=== PATIENT | male | born 1925 | race Caucasian/White ===

== ENCOUNTER 2016-09-21 21:41 | Emergency (ER) | payer MEDICARE ==
[~2016-09-21] VITALS: Ht 180.3 cm; Wt 81.6 kg
[~2016-09-21 21:41] MED LIST: AMIODARONE HYD200 MG PO; AMIODARONE200 MG PO; APLISOL5 TU/0.1 M ID; ASPIRIN ADULT L81 M1 PO; ASPIRIN81 M1 PO; ATIVAN1 MG PO; COLACE100 MG PO; COUMADIN4 M1 PO; COUMADIN5 M2 PO; CRESTOR10 MG PO; CRESTOR20 MG PO; DIGOX0.125 MG PO; DILTIAZEM120 MG PO; DIPROSONE 0.05%15 GM PO; DULCOLAX10 MG R; DUONEB 3 MG/3 ML3 M1 INH; FISH OIL 500MG500 MG PO; FISH OIL1000 MG PO; FLEET ADULT ENEM1 EA R; FLOMAX0.4 MG PO; HYDROCODONE BIT1 T11 PO; IMDUR ER30 MG PO; KCL PO; KLOR-CON M2020 ME1 PO; KLOR-CON M2020 MEQ PO; LANOXIN0.125 MG PO; LASIX20 MG PO; LASIX40 MG PO; LEVOTHYROXINE0.05 MG PO; LIPITOR20 MG PO; LISINOPRIL10 MG PO; LOPRESSOR100 MG PO; LOVENOX80 MG/0.8 SC; METOPROLOL25 MG PO; MOM30 ML PO; MULTIVITAMIN1 SGL PO; NOLVADEX20 MG PO; PERCOCET 325 MG1 TA5 PO; POTASSIUM CHLO10 ME2 PO; TAMOXIFEN CITRA20 MG PO; TAMSULOSIN HYD0.4 MG PO; TOPROL XL25 MG PO; TYLENOL325 M1 PO; VIBRAMYCIN100 MG PO; WARFARIN SOD5 MG PO; [UNRECOGNIZED DRUG - OTHER] IM
[2016-09-21 21:47] VITALS: BP 150/64
[2016-09-21 22:10] LABS: BASO % 0.4 % (0.0-1.0); EOS # 0.2 10*3/uL (0.0-0.4); EOS % 2.2 % (1.0-4.0); HEMATOCRIT 31.3 % (42.0-52.0); IG # 0.1 10*3/uL (0.0-0.1); LYMPH # 1.3 10*3/uL (1.3-4.4); LYMPH % 17.4 % (27.0-41.0); MEAN CELL VOLUME 92.6 fl (80.0-94.0); MEAN CORPUSCULAR HGB 29.6 pg (27.0-31.0); MEAN CORPUSCULAR HGB CONC 31.9 g/dl (33.0-37.0); MEAN PLATELET VOLUME 9.2 fl (9.6-12.3); MONO # 0.7 10*3/uL (0.1-1.0); MONO % 9.5 % (3.0-9.0); NEUT # 5.2 10*3/uL (2.3-7.9); PLATELET COUNT AUTOMATED 115 10*3/uL (130-400); RED BLOOD COUNT 3.38 10*6/uL (4.50-5.90); RED CELL DISTRI WIDTH 14.5 % (0-14.5); WHITE BLOOD COUNT 7.6 10*3/uL (4.8-10.8)
[2016-09-21 22:19] LABS: PROTHROMBIN TIME 10.7 SECONDS (9.0-12.4)
[2016-09-21 22:29] LABS: ALBUMIN 3.3 gm/dl (3.1-4.5); ALKALINE PHOSPHATASE 79 U/L (45-117); BILIRUBIN, TOTAL 0.5 mg/dl (0.2-1.0); BUN 38 mg/dl (7-24); CARBON DIOXIDE 25 mmol/L (21-32); CHLORIDE 106 mmol/L (98-107); EST GLOM FILT AFRICAN AMERICAN 28 ml/min; GLUCOSE 140 mg/dL (65-99); POTASSIUM 4.1 mmol/L (3.5-5.1); SGOT/AST 32 IU/L (3-35); SGPT/ALT 33 U/L (12-78); SODIUM 142 mmol/L (136-145); TOTAL PROTEIN 6.9 gm/dL (6.4-8.2)
[2016-09-21 22:30] LABS: TROPONIN I < 0.015 ng/ml (<0.045)
[2016-09-21 23:50] LABS: BILIRUBIN NEGATIVE (NEGATIVE); BLOOD NEGATIVE (NEGATIVE); CLARITY CLEAR (CLEAR); COLOR YELLOW (YELLOW); GLUCOSE NEGATIVE (NEGATIVE); KETONE NEGATIVE (NEGATIVE); LEUKO ESTERASE NEGATIVE (NEGATIVE); NITRITE NEGATIVE (NEGATIVE); PH 6.5 (5.0-9.0); PROTEIN NEGATIVE (NEGATIVE); UROBILINOGEN 0.2 E.U./dl (0.2-1.0)
[2016-09-21 23:51] VITALS: BP 153/62
[2016-09-22 00:05] LABS: URINE REFLEX COMMENT NO (NO); WBC 0-2 wbc/hpf (0-5)
== END 2016-09-22 00:21 | disposition short-term general hospital (02) ==
LOC: ED 21:41 → EDHOLD 22:51 → ED 09-22 00:21
PROVIDERS: Emergency Medicine
DX: S72.002A Fracture of unspecified part of neck of left femur, initial encounter for closed fracture (principal); Z88.1 Allergy status to other antibiotic agents; Z79.82 Long term (current) use of aspirin; Z79.899 Other long term (current) drug therapy; W18.39XA Other fall on same level, initial encounter; Y93.01 Activity, walking, marching and hiking; Y92.090 Kitchen in other non-institutional residence as the place of occurrence of the external cause; Y99.8 Other external cause status

== ENCOUNTER → 2017-01-03 | Day surgery (SDC) | payer MEDICARE ==
[~2017-01-03] VITALS: Wt 75.7 kg
--- NOTE | ~2017-01-03 | O ---
[place], [place] OPERATIVE NOTE [id number] UNIT #: [id number] ROOM: DOCTOR: GINI MOBLEY MD BIRTHDATE: [birth year] DOS: GASTROENDOSCOPIC REPORT INDICATIONS: The patient has presented with chief complaint of anemia, undergone investigation. The patient resides in a skilled nursing. PROCEDURE: Today's procedure part of investigation is panendoscopy. PREMEDICATION: Versed and Diprivan. SCOPE: Olympus forward-viewing gastroscope Q10 video. REPORT: After putting the patient in the left lateral position and after application of lubricant to the scope, the scope was introduced. Thereafter, under direct visualization, I advanced through the length of esophagus without difficulty. Hiatal hernia was identified. This was approximately 3 cm. Gastric pouch was then entered. Gastritis was seen. Duodenal bulb, second and third part within normal limit. No biopsies obtained. The patient was gradually extubated, tolerated procedure well. IMPRESSION: Mild gastritis. PLAN AND DISCUSSION: There is no source of upper gastrointestinal bleed in this patient or lower gastrointestinal bleed in this patient. Chronic anemia could be of other etiologies. The patient is, however, on aspirin. We are going to resume his aspirin intake again today and regular diet as tolerated. FOLLOWUP: With you in skilled nursing and in any further anemia workup. Thank you very much again. Sincerely yours, [place], [place] OPERATIVE NOTE [facility] [id number] UNIT #: [id number] ROOM: DOCTOR: GINI MOBLEY MD BIRTHDATE: [birth year] GINI MOBLEY MD CM:OPRECORD:OPERATIVE NOTE 1000 1142 GINI MOBLEY MD 01/03/17 1851 interface
--- NOTE | ~2017-01-03 | O ---
[place], [place] OPERATIVE NOTE [facility] [id number] UNIT #: [id number] ROOM: DOCTOR: GINI MOBLEY MD BIRTHDATE: [birth year] DOS: HISTORY OF PRESENT ILLNESS: An 89-year-old patient who has presented with chief complaint of anemia, drop in H and H. PAST MEDICAL HISTORY: Left hip, status post previous transfusion, hypertension, atrial fibrillation and pneumonic infiltrate. ALLERGIES: CEFTIN. FAMILY HISTORY: Noncontributory. SOCIAL HISTORY: Nonsmoker and social alcohol consumer, presently residing in a assisted, [facility]. PROCEDURE: Today's procedure part of investigation is panendoscopy and colonoscopy. PREMEDICATION: Versed and Diprivan. SCOPE: Olympus forwarding colonoscope 10L video. REPORT: After putting the patient in the left lateral position and after application of lubricant to the scope, the scope was introduced. Thereafter, under direct visualization, I advanced through the length of colon without difficulty. Base of the cecum explored, appendiceal orifice identified and ileocecal valve was defined. Pandiverticulosis of tjyv-gn-hyhelqyu degree was identified. No ulceration, no lesion was seen. Air was suctioned out. The patient was extubated, tolerated procedure well. IMPRESSION: Diverticulosis, no source of lower gastrointestinal bleed. PLAN: I am going to proceed with panendoscopy [place], [place] OPERATIVE NOTE NAME: CIRA SAINZN Stephane UNIT #: [id number] ROOM: DOCTOR: GINI MOBLEY MD BIRTHDATE: [birth year] GINI MOBLEY MD CM:OPRECORD:OPERATIVE NOTE 1000 1136 GINI MOBLEY MD 01/03/17 1137 interface
[2017-01-03 08:55] VITALS: BP 148/88
[2017-01-03 09:56] VITALS: BP 113/63
[2017-01-03 10:10] VITALS: BP 110/50
[2017-01-03 10:25] VITALS: BP 130/56
== END | disposition home or self-care (01) ==
LOC: SDC 12-29 08:45
DX: K29.70 Gastritis, unspecified, without bleeding (principal); K44.9 Diaphragmatic hernia without obstruction or gangrene; D64.9 Anemia, unspecified; K57.30 Diverticulosis of large intestine without perforation or abscess without bleeding; Z79.82 Long term (current) use of aspirin; I48.91 Unspecified atrial fibrillation; Z79.01 Long term (current) use of anticoagulants; I10 Essential (primary) hypertension; Z95.2 Presence of prosthetic heart valve; Z95.1 Presence of aortocoronary bypass graft; Z88.8 Allergy status to other drugs, medicaments and biological substances

== ENCOUNTER 2017-02-04 14:38 | Inpatient (IN) | payer MEDICARE ==
[2017-02-04] VITALS (9 sets, daily range): BP systolic 98–135; BP diastolic 54–79
[~2017-02-04] VITALS: Ht 177.8 cm; Wt 73.9 kg
--- NOTE | ~2017-02-04 | PR ---
[place], [place] PROGRESS NOTE NAME: ROLANDO SAINZ [facility] #: [id number] UNIT #: [id number] ROOM: [facility] DOCTOR: JAGDISH BRUNO MD BIRTHDATE: [birth year] DOS: 02/06/2017 SUBJECTIVE: The patient was seen today at his bedside in the Intensive Care Unit. No family members were in attendance. He seems more awake and alert today. Since I saw him last, he did convert from atrial flutter into sinus rhythm. His diltiazem drip was stopped yesterday. He is currently on a small dose of metoprolol and a fairly large dose of amiodarone orally with good control of his rhythms and his rate. The patient denies chest pain, nausea or dyspnea. PHYSICAL EXAMINATION: VITAL SIGNS: Pulse is 64 and regular, blood pressure is 127/61. He is afebrile. He weighs 73.9 kilograms with a body mass index of 23.4. HEENT: Normocephalic, atraumatic. NECK: Supple. He has no jugular distention. Carotids are full without bruits. LUNGS: Respirations are unlabored. His chest is clear anteriorly and laterally. HEART: Has a regular rhythm. He has a fourth heart sound, but no third heart sound. He has a grade 2/6 systolic murmur along the left sternal border, but no diastolic murmurs. ABDOMEN: Soft and normally active. EXTREMITIES: Showed no edema. LABORATORY DATA: Hemoglobin today is 9.2, white count 9100, platelet count 136,000. Sodium 141, potassium 3.7, BUN 14, creatinine 1.08. IMPRESSION: 1. Paroxysmal atrial fibrillation and flutter with rapid ventricular response. The patient converted to sinus rhythm yesterday when his amiodarone dose was increased. 2. 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 3. Remote history of bypass surgery. 4. History of breast cancer, on hormonal therapy. 5. Malnutrition. 6. Hypotension due to his tachycardia and left ventricular dysfunction along with diarrhea. PLAN: I did review the patient's echocardiogram yesterday. It showed that his left ventricular size was normal with mild concentric left ventricular hypertrophy, systolic function overall was normal. His diastolic filling pattern was consistent with stage 3 diastolic dysfunction. The left atrium was dilated. The aortic valve was not well visualized, but appeared to be functioning normally. The patient did have moderate mitral insufficiency. The hospitalist physicians did speak to family about the patient's anticoagulation. Anticoagulation was held after he fell and fractured his hip. There was a concern that he was too frail to maintain anticoagulation therapy. [place], [place] PROGRESS NOTE [facility] [id number] UNIT #: [id number] ROOM: [facility] DOCTOR: JAGDISH BRUNO MD BIRTHDATE: [birth year] He seems mostly bedridden at this time and therefore, anticoagulation may be better tolerated; however, I will defer this to his primary care service and his regular basketball coach. Since his rhythm is now controlled, I will decrease his amiodarone to 200 mg twice a day. We will continue low-dose beta fady. We will continue to follow him with his other physicians. No other invasive or aggressive cardiac evaluation is planned at this time. We thank the hospitalist physicians for asking our advice regarding his care. JAGDISH BRUNO MD CM:PNTRANS [id number] JAGDISH BRUNO MD 02/06/17 1344 interface
--- NOTE | ~2017-02-04 | CON ---
[place], [place] REPORT OF CONSULTATION NAME: ROLANDO SAINZ [facility] #: [id number] UNIT #: [id number] ROOM: 523 DOCTOR: JAGDISH BRUNO MD BIRTHDATE: [birth year] DOS: 02/05/2017 CARDIOLOGY CONSULTATION The patient was seen in the intensive care unit. REASON FOR CONSULTATION: Tachycardia and hypotension. HISTORY OF PRESENT ILLNESS: The patient is an 89-year-old man who does have a complicated cardiovascular history. Most of his care has occurred at the [facility] in [place], [place] and therefore detailed records are not available. Review of old records that are at [facility] show that the patient does have a history of coronary artery disease and had bypass surgery over 20 years ago. He also had a possible endocarditis and aortic stenosis. An aortic valve replacement was done in November 2013. It is not clear from the history; however, there is suggestion that this may have been a transaortic valve replacement (TAVR). The patient has been chronically ill. He does have a history of breast cancer. He also has a history of a hip fracture in September 2016. After the hip fracture, he reportedly has had persistent Clostridium difficile enterocolitis, resulting in persistent diarrhea. He is a [facility] a local [facility] where he was noted to be tachycardic and hypotensive on 02/04/2017. He was therefore moved to [facility] for further assessment. He was placed on a diltiazem drip and his heart rate has decreased from 150 range to about the 110 range. The patient is lying flat in bed. He currently denies any chest pain or palpitations. He is lethargic but arousable and able to answer questions. He does seem to be very hard of hearing and it is difficult to get a detailed interview with him. PAST MEDICAL HISTORY: Extensive and includes the followin. Atrial fibrillation, which has been present for several years along with atrial flutter. 2. Atherosclerotic heart disease, status post bypass surgery over 20 years ago. 3. Aortic stenosis, status post aortic valve replacement in November 2013. A tissue prosthesis was utilized and it is not clear if this was a surgical valve replacement or transaortic valve replacement. 4. History of breast cancer, status post mastectomy and hormonal therapy. 5. Hip fracture, September 2016. 6. 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 7. Hypothyroidism. 8. Status post knee replacement. 9. History of herniorrhaphy. 10. Status post cholecystectomy. REVIEW OF SYSTEMS: The patient denies diplopia. He does admit to feeling tired and weak. He denies dyspnea, orthopnea or PND. He denies any chest pain or palpitations. He denies nausea or vomiting. He has had persistent diarrhea. [place], [place] REPORT OF CONSULTATION NAME: ROLANDO SAINZ UNIT #: [id number] ROOM: 523 DOCTOR: JAGDISH BRUNO MD BIRTHDATE: [birth year] He denies blood in his stools. He denies blood in his urine. He denies any peripheral edema. He denies fevers or chills. His appetite has diminished. He denies cough or hemoptysis. Remainder of the review of systems is negative except as noted above. FAMILY HISTORY: The patient's mother of cancer at age 56. His father of cancer at age 84. MEDICATIONS PRIOR TO ADMISSION: Albuterol by inhaler as needed, acetaminophen p.r.n., amiodarone 200 mg p.o. daily, aspirin 325 mg b.i.d., cholestyramine 1 pack b.i.d., clonazepam 0.5 mg at bedtime p.r.n. agitation, iron sulfate 325 mg q. 8 hours, furosemide 20 mg on Mondays, Wednesdays and Fridays, potassium chloride 20 mEq on Mondays, Wednesdays and Fridays, levothyroxine 50 mcg daily, metoprolol tartrate 12.5 mg daily, Zofran q. 6 hours p.r.n., sertraline 50 mg at bedtime, tamoxifen 20 mg at bedtime, Tamsulosin 0.4 mg at bedtime and Kenalog cream b.i.d. to the left upper thigh. ALLERGIES: The patient lists allergies to CEFUROXIME. SOCIAL HISTORY: The [facility] is a [facility]. He does not consume excessive amounts of alcohol and does not smoke. PHYSICAL EXAMINATION: GENERAL: The patient is a slender, elderly white male who is awake and alert, but lethargic. VITAL SIGNS: Pulse is 110 and regular, blood pressure is 117/60. He is afebrile. He weighs 73.9 kg and has a body mass index of 23.4. HEENT: Normocephalic, atraumatic. Extraocular muscles are intact. Sclerae are clear. Pupils are equal, round and reactive to light. Oral mucosa is moist. Tongue is midline. NECK: Supple. He has no jugular distention. Carotids are full. He has no bruits. He had no neck or supraclavicular masses and no thyromegaly. LUNGS: Respirations are unlabored. His chest is clear anteriorly and laterally. He does have decreased breath sounds at the bases. CHEST: Does show a well-healed sternotomy incision. There do appear to be 2 parallel incision scars over his sternum which may indicate he has had 2 sternotomies in the past, 1 for his bypass and potentially a second one for his aortic valve replacement. As noted, it is not clear from the history whether his aortic valve replacement was a surgical valve replacement or TAVR. HEART: Has an irregular rhythm. He has a grade 2/6 systolic murmur along the left sternal border. No diastolic murmurs are present. There are no gallops. The PMI was not displaced. There is no precordial heave, lift or thrill. ABDOMEN: Soft and normally active without masses, organomegaly or bruits. EXTREMITIES: Showed no edema. Peripheral pulses are absent in the feet. LABORATORY DATA: I reviewed his electrocardiogram, which shows atrial flutter with 2:1 block. He has low voltage. No acute ST or T-wave changes are seen. Chest x-ray shows mild cardiomegaly, but no acute infiltrates. There may be some scarring at the left base. Hemoglobin is 10.0, hematocrit 33.4. There are 12,600 white cells. INR is 1.1. Sodium is 144, potassium 3.7, BUN 14, [place], [place] REPORT OF CONSULTATION NAME: ROLANDO SAINZ UNIT #: [id number] ROOM: 523 DOCTOR: JAGDISH BRUNO MD BIRTHDATE: [birth year] creatinine 1.21. Troponin is normal, although it is slightly measurable at 0.019. TSH is normal. IMPRESSIONS: 1. Atrial fibrillation and flutter with a rapid ventricular response. The patient apparently has had this in the past. Typically, his heart rate is controlled with low dose amiodarone and beta fady. It is unclear if recurrent Clostridium is resulting in his current hemodynamic instability. 2. History of aortic valve replacement utilizing tissue prosthesis, technique not known, approximately November 2013. 3. Remote history of bypass surgery. 4. History of breast cancer, on hormonal therapy. 5. Malnutrition. 6. Hypotension, probably due to a combination of his tachycardia, possible left ventricular dysfunction and diarrhea. 7. Other diagnoses as noted above. PLAN: We will change from metoprolol tartrate to metoprolol succinate in order to improve coverage. For now, I will increase his amiodarone dose to try to better improve his heart rate control. Old records and an old echo have been requested from the [facility] in [place]. The records available indicate that he is not being anticoagulated. He is on high dose aspirin (325 mg twice a day), but no warfarin or ____ oral anticoagulant. For now, we will continue his current medications, but request records from the [facility] in [place] to see if we can get a better idea as to why he is not being anticoagulated. Hopefully, as his diarrhea decreases and the level of amiodarone in the system increases, his heart rate will slow and consequently his blood pressure will increase. I thank the hospitalist physicians for asking our advice regarding his management. ADDENDUM: As I was creating this report, the patient's echocardiogram became available. Study was done 10/10/2016 at the [facility] in [place]. This was felt to be a technically difficult study. The left ventricular size was normal with an ejection fraction of about 60%. No regional wall motion abnormalities were seen. The left atrium was moderately enlarged. There was moderate mitral insufficiency. Bioprosthetic was present in the aortic position with a mean transvalvular gradient of 9 mmHg. The valve was felt to be functioning normally. There was hzylttgp-in-yvvzot tricuspid insufficiency with a right ventricular systolic pressure between 40 and 45 mmHg. No pericardial effusion was seen. We will repeat the patient's echocardiogram at this time to make sure he has not developed a problem with his bowel function or left ventricular function in the last 3 months that would cause his tachycardia and hypotension. [place], [place] REPORT OF CONSULTATION NAME: ROLANDO SAINZ UNIT #: [id number] ROOM: 523 DOCTOR: JAGDISH BRUNO MD BIRTHDATE: [birth year] JAGDISH BRUNO MD CM:CONSTR:REPORT OF CONSULTATION 0855 02/07/17 1558 interface
[~2017-02-04 14:38] MED LIST changes: +ASPIR-TRIN325 MG PO; -ASPIRIN81 M1 PO; -LASIX40 MG PO; -LEVOTHYROXINE0.05 MG PO; +LEVOTHYROXINE50 MCG PO
[2017-02-04 15:24] LABS: BASO % 0.3 % (0.0-1.0); EOS # 0.1 10*3/uL (0.0-0.4); EOS % 0.4 % (1.0-4.0); HEMATOCRIT 35.6 % (42.0-52.0); HEMOGLOBIN 10.9 g/dl (14.0-18.0); LYMPH # 1.2 10*3/uL (1.3-4.4); LYMPH % 7.6 % (27.0-41.0); MEAN CORPUSCULAR HGB 28.2 pg (27.0-31.0); MEAN CORPUSCULAR HGB CONC 30.6 g/dl (33.0-37.0); MEAN PLATELET VOLUME 9.7 fl (9.6-12.3); MONO # 1.5 10*3/uL (0.1-1.0); MONO % 9.2 % (3.0-9.0); NEUT % 82.1 % (47.0-73.0); PLATELET COUNT AUTOMATED 163 10*3/uL (130-400); RED BLOOD COUNT 3.87 10*6/uL (4.50-5.90); RED CELL DISTRI WIDTH 17.9 % (0-14.5); WHITE BLOOD COUNT 15.9 10*3/uL (4.8-10.8)
[2017-02-04 15:33] LABS: ACT PARTIAL THROMBO TIME 26.3 SECONDS (20.8-31.5); INTERNATIONAL NORM RATIO 1.1 (2.0-3.5)
[2017-02-04 15:41] LABS: CREATININE 1.45 mg/dL (0.70-1.30); MAGNESIUM 1.8 mg/dL (1.5-2.1); POTASSIUM 3.7 mmol/L (3.5-5.1); TROPONIN I 0.02 ng/ml (<0.045)
[2017-02-04 16:06] LABS: BILIRUBIN NEGATIVE (NEGATIVE); BLOOD NEGATIVE (NEGATIVE); CLARITY CLEAR (CLEAR); COLOR YELLOW (YELLOW); GLUCOSE NEGATIVE (NEGATIVE); KETONE NEGATIVE (NEGATIVE); LEUKO ESTERASE NEGATIVE (NEGATIVE); NITRITE NEGATIVE (NEGATIVE); SPECIFIC GRAVITY 1.025 (1.005-1.030); UROBILINOGEN 0.2 E.U./dl (0.2-1.0)
[2017-02-04 16:18] LABS: WBC 0-2 wbc/hpf (0-5)
[2017-02-04 16:19] LABS: BACTERIA TRACE; EPITHELIAL CELLS 0-2
--- NOTE | 2017-02-04 17:30 | NUR ---
A 89, admitted to ICCU, under the services of AL Alonso DO with a diagnosis of sepsis. Chief complaint is diarrhea. Patient arrived via stretcher from ER. Monitor applied. Initial assessment completed. Vital signs taken and recorded. AL ALONSO DO notified of admission to the unit. Orders received. See assessment for past medical history, medications and allergies. Patient and/or family oriented to unit. [facility] ICCU visitation policy reviewed. Clothing/patient valuable form completed. TIMOTHY VALDIVIA
[2017-02-04] MEDS ORDERED: KLONOPIN0.5 MG PO (18:02)
[2017-02-04] MEDS ORDERED: METOPROLOL25 MG PO (18:08)
[2017-02-04] MEDS ORDERED: ZOLOFT50 MG PO (18:09)
[2017-02-04] MEDS ORDERED: QUESTRAN POWDE378 GM PO (18:12)
[2017-02-04] MEDS ORDERED: KENALOG 0.1%80 GM T (18:13)
[2017-02-04] MEDS ORDERED: FERROUS SULFAT325 MG PO (18:14)
[2017-02-04] MEDS ORDERED: TYLENOL325 M2 PO (18:16)
[2017-02-04] MEDS ORDERED: ZOFRAN4 MG PO (18:17)
--- NOTE | 2017-02-04 18:54 | NUR ---
DR. HIGGINBOTHAM NOTIFIED OF CONSULT AND SELVINS RICH MORROW CONTINUED.
[2017-02-05] VITALS (10 sets, daily range): BP systolic 91–118; BP diastolic 49–64
--- NOTE | 2017-02-05 04:10 | NUR ---
PATIENT HAS NOT URINATED SINCE 1899 ON 02/04. CALLED DOCTOR BA WHO GAVE ORDERS FOR A MOYER CATH.
--- NOTE | 2017-02-05 04:27 | NUR ---
MOYER CATH 16F INSERTED PER DOCTORS ORDERS. PATIENT TOLERATED WELL. PATIENT DRAINING DARK CHERI URINE. PATIENT HAD APPROX 500 MLS OF URINE.
[2017-02-05 05:15] LABS: BASO % 0.3 % (0.0-1.0); EOS # 0.2 10*3/uL (0.0-0.4); EOS % 1.7 % (1.0-4.0); HEMATOCRIT 33.4 % (42.0-52.0); LYMPH # 0.8 10*3/uL (1.3-4.4); LYMPH % 6.3 % (27.0-41.0); MEAN CELL VOLUME 93.3 fl (80.0-94.0); MEAN CORPUSCULAR HGB 27.9 pg (27.0-31.0); MEAN CORPUSCULAR HGB CONC 29.9 g/dl (33.0-37.0); MEAN PLATELET VOLUME 9.6 fl (9.6-12.3); MONO # 1.3 10*3/uL (0.1-1.0); MONO % 10.2 % (3.0-9.0); NEUT # 10.3 10*3/uL (2.3-7.9); NEUT % 81.1 % (47.0-73.0); PLATELET COUNT AUTOMATED 132 10*3/uL (130-400); RED BLOOD COUNT 3.58 10*6/uL (4.50-5.90); WHITE BLOOD COUNT 12.6 10*3/uL (4.8-10.8)
[2017-02-05 05:31] LABS: ALBUMIN 2.2 gm/dl (3.1-4.5); ALKALINE PHOSPHATASE 67 U/L (45-117); BUN 14 mg/dl (7-24); CHLORIDE 109 mmol/L (98-107); CHOLESTEROL 103 mg/dL (<200); CREATININE 1.21 mg/dL (0.70-1.30); HDL CHOLESTEROL 40 mg/dl (40-60); LDL CHOLESTEROL 49 mg/dL (9-159); MAGNESIUM 1.7 mg/dL (1.5-2.1); PHOSPHOROUS 2.6 mg/dL (2.5-4.9); POTASSIUM 3.7 mmol/L (3.5-5.1); SGOT/AST 45 IU/L (3-35); SGPT/ALT 30 U/L (12-78); SODIUM 144 mmol/L (136-145); TOTAL PROTEIN 5.7 gm/dL (6.4-8.2); TRIGLYCERIDES 68 mg/dl (<150); VLDL CHOLESTEROL 14 mg/dL (6-40)
--- NOTE | 2017-02-05 07:05 | NUR ---
PT ASSISTED ONTO BEDPAN FOR GREEN MUSHY STOOL WITH STRONG ODOR. CARDIZEM DRIP CONTINUES AT 5 MG/HR FOR A-FIB RATES IN THE LOW 100-110'S. PATIENT IS HARD OF HEARING.
--- NOTE | 2017-02-05 07:34 | NUR ---
Shift chart check completed.
[2017-02-05] MEDS ORDERED: VENTOLIN 02.5 MG/3 M INH (07:44)
--- NOTE | 2017-02-05 08:00 | NUR ---
CONTROL CLERK FOOD AND BEVERAGE VS. PER CHART, PT COMES FROM [facility]. WILL CHECK FOR RETURN NEEDS.
[2017-02-05 08:04] LABS: VITAMIN D, 25-HYDROXY 21.9 ng/mL (30-100)
--- NOTE | 2017-02-05 08:16 | NUR ---
MED LIST IS NOW UPDATED AGAINST THE [facility] PAPERS
--- NOTE | 2017-02-05 08:42 | NUR ---
DR BRUNO HERE AND EXAMINED THE PATIENT.
--- NOTE | 2017-02-05 09:46 | NUR ---
MISHEL WAS IN AND WE TOGETHER VIEWED THE WOUNDS. RT BUTTOCK IS STAGE 2 PRESSURE MEASURING 2 X 0.2 X 0.1 - CALAZYME SUGGESTED. HEELS ARE MUSHY BUT CLOSED & HEEL RAISERS IN PLACE. LEFT NAIR IS DRY FLAKEY/CLOSED/ NO WOUND - POSITIONED FOR ECHO AT BEDSIDE
--- NOTE | 2017-02-05 10:39 | NUR ---
DR DODD HERE AND PATIENT SEEN. SPOKE WITH THE DAUGHTER
--- NOTE | 2017-02-05 11:12 | NUR ---
ROLANDO SAINZ [id number] Please refer to the physician's history and physical for past medical history, comorbid conditions, and allergies. Diagnosis: DIARRHEA SEPSIS ATRIAL FIBRILLATION WITH RVR Jose Score: 12,HIGH RISK WOUND DESCRIPTIONS: Location of the wound: right buttocks Type of wound: stage 2 Thickness: Partial Size: 2.0cm x 0.2cm x 0.1cm Tunneling: none Undermining: none Sinus Tract: none Presence of Exudate: serosanguineous Amount: Light Color: Red Odor: None Periwound Skin Appearance: Normal Wound edges: approximated Pain (associated with wound): none at time of assessment How does patient state this happened? pt unable to state how this happened Patient is postive for C-diff Bilateral heels red and blanchable. Heel raiser pro boot on BLE at time of assessment. LLE dry and flaky area noted. No drainage at present time. No odor at present time. Surface the patient is resting on: Position Pro SKIN PREVENTION RECOMMENDATION: 1. Pressure redistribution support surface as appropriate 2. Elevate heels 3. Remove boots/TEDS every shift and reapply 4. Head of bed 30 degrees as tolerated 5. Assess nutrition and hydration 6. Manage moisture 7. Avoid the use of containment devices while in bed 8. Use absorptive products on surfaces limit layers of linens on bed 9. Turn and reposition every 1-2 hours in bed and every 1 hour in chair as tolerated 10. Weight shifts every 15 minutes while up in chair 11. Offloading with pillows or device to keep heels elevated off bed 12. Monitor skin at least every shift 13. Inspect under medical devices twice a day WOUND TREATMENT RECOMMENDATIONS: Lac-hydrin to LLE. Heel raiser pro boots to BLE. Calazyme to buttocks every shift and prn for soiling.
--- NOTE | 2017-02-05 13:40 | NUR ---
VISHAL GIL FEEDING THE PATIENT. TALKING ABOUT FAMILY & PAST EVENTS. VSS. CARDIZEM DRIP INFUSING AT 5 MG/HR,
--- NOTE | 2017-02-05 15:12 | NUR ---
SPOKE WITH DR BRUNO ABOUT THE HEART RATE DROPPING INTO THE 60-70'S FLUTTER. ORDER TO DISCONTINUE THE CARDIZEM DRIP
--- NOTE | 2017-02-05 15:32 | NUR ---
patient is currently a private pay patient at [facility] and a bed hold. Patient is ok to return when medically stable for discharge.
--- NOTE | 2017-02-05 18:38 | NUR ---
SLEEPING - IV SITES ASYMPTOMATIC X2
--- NOTE | 2017-02-05 19:09 | NUR ---
CHART CHECK COMPLETED.
--- NOTE | 2017-02-05 19:28 | NUR ---
PT USED BEDPAN FOR MODERATE AMOUNT LOOSE MUSHY GREEN STOOL. THEN ASSISTED HIM WITH DRINKING HIS BOOST MILKSHAKE. HE IS NOW WATCHING CC TV. CALL LIGHT IS IN REACH AND PT IN VIEW OF ICU STAFF.
--- NOTE | 2017-02-05 22:18 | NUR ---
COMPLETE BATH AND BED LINEN CHANGE DONE. PT TOLERATED WELL.
[2017-02-06] VITALS: BP 111/58
[2017-02-06 04:00] VITALS: BP 97/47
[2017-02-06 05:45] LABS: ALBUMIN 2.2 gm/dl (3.1-4.5); ALKALINE PHOSPHATASE 69 U/L (45-117); BUN 14 mg/dl (7-24); CHLORIDE 108 mmol/L (98-107); CREATININE 1.08 mg/dL (0.70-1.30); POTASSIUM 3.7 mmol/L (3.5-5.1); SGOT/AST 37 IU/L (3-35); SGPT/ALT 28 U/L (12-78); SODIUM 141 mmol/L (136-145); TOTAL PROTEIN 5.5 gm/dL (6.4-8.2)
[2017-02-06 05:55] LABS: BASO % 0.3 % (0.0-1.0); EOS # 0.5 10*3/uL (0.0-0.4); EOS % 5.4 % (1.0-4.0); HEMATOCRIT 30.5 % (42.0-52.0); HEMOGLOBIN 9.2 g/dl (14.0-18.0); LYMPH # 1.2 10*3/uL (1.3-4.4); LYMPH % 13.4 % (27.0-41.0); MEAN CELL VOLUME 93.8 fl (80.0-94.0); MEAN CORPUSCULAR HGB 28.3 pg (27.0-31.0); MEAN CORPUSCULAR HGB CONC 30.2 g/dl (33.0-37.0); MEAN PLATELET VOLUME 10.1 fl (9.6-12.3); MONO # 1.3 10*3/uL (0.1-1.0); MONO % 14.1 % (3.0-9.0); NEUT % 66.4 % (47.0-73.0); PLATELET COUNT AUTOMATED 136 10*3/uL (130-400); RED BLOOD COUNT 3.25 10*6/uL (4.50-5.90); RED CELL DISTRI WIDTH 17.7 % (0-14.5); WHITE BLOOD COUNT 9.1 10*3/uL (4.8-10.8)
[2017-02-06 08:00] VITALS: BP 127/61
--- NOTE | 2017-02-06 08:30 | NUR ---
Awake and alert. Used Bedpan for small dark stool. Lisset care given and uplifted in bed for breakfast. Dr. Jimenez in to jessica.
--- NOTE | 2017-02-06 11:29 | NUR ---
Scant liquid BM . Lisset care and ointment to buttock , lotion to LLE .
[2017-02-06 12:00] VITALS: BP 129/61
--- NOTE | 2017-02-06 13:36 | NUR ---
PHYSICAL THERAPY PAtient evaluated in ICCU, full evaluation to follow. Continue with PT as per plan of care with fall, 02 and mod (A) as well as acute debility precautions. MAy require SNF in order to return to PLOF. PAtient is moderate complexity via chart review, tests and evaluation: 34530. thak you for this referral. Magda Powell,PT
--- NOTE | 2017-02-06 13:36 | NUR ---
Transport pending to 523. Report called to
--- NOTE | 2017-02-06 14:11 | NUR ---
Transferred to 3 .
[2017-02-06 16:00] VITALS: BP 126/52
--- NOTE | 2017-02-06 18:30 | NUR ---
ASSISTED PT TO BEDSIDE COMMODE TO HAVE BOWEL MOVEMENT, PT WEAK AND DECONDITIONED. ASSISTED PT BACK TO BED AT THIS TIME, APPLIED HEEL PROTECTORS AND POSITIONED FOR COMFORT. CALL LIGHT WITHIN REACH.
--- NOTE | 2017-02-06 19:41 | NUR ---
PATIENT RESTING IN BED WATCHING THE NEWS. DENIES PAIN OR DIARRHEA AT THIS TIME. STATES HE DOES FEEL DIZZY WHEN HE STANDS UP AND DOES REQUIRE ASSISTANCE. NO NEEDS AT THIS TIME. BED IN LOWEST POSITION, CALL LIGHT IN REACH
[2017-02-06 20:00] VITALS: BP 125/67
[2017-02-07] VITALS: BP 126/72
--- NOTE | 2017-02-07 02:20 | NUR ---
24 HR chart check completed.
--- NOTE | 2017-02-07 02:29 | NUR ---
PATIENT RESTING WITH NO S/S OF DISTRESS. BED IN LOWEST POSITON, CALL LIGHT IN REACH
[2017-02-07 06:25] LABS: BASO % 0.5 % (0.0-1.0); EOS # 0.4 10*3/uL (0.0-0.4); EOS % 5.6 % (1.0-4.0); HEMATOCRIT 31.3 % (42.0-52.0); HEMOGLOBIN 9.6 g/dl (14.0-18.0); LYMPH # 1.1 10*3/uL (1.3-4.4); LYMPH % 16.2 % (27.0-41.0); MEAN CELL VOLUME 92.3 fl (80.0-94.0); MEAN CORPUSCULAR HGB 28.3 pg (27.0-31.0); MEAN CORPUSCULAR HGB CONC 30.7 g/dl (33.0-37.0); MEAN PLATELET VOLUME 9.6 fl (9.6-12.3); MONO # 0.8 10*3/uL (0.1-1.0); MONO % 11.4 % (3.0-9.0); NEUT # 4.3 10*3/uL (2.3-7.9); NEUT % 65.4 % (47.0-73.0); PLATELET COUNT AUTOMATED 149 10*3/uL (130-400); RED BLOOD COUNT 3.39 10*6/uL (4.50-5.90); RED CELL DISTRI WIDTH 17.4 % (0-14.5); WHITE BLOOD COUNT 6.6 10*3/uL (4.8-10.8)
[2017-02-07 06:57] LABS: ALBUMIN 2.2 gm/dl (3.1-4.5); ALKALINE PHOSPHATASE 72 U/L (45-117); BUN 12 mg/dl (7-24); CHLORIDE 108 mmol/L (98-107); CREATININE 0.96 mg/dL (0.70-1.30); POTASSIUM 3.7 mmol/L (3.5-5.1); SGOT/AST 30 IU/L (3-35); SGPT/ALT 24 U/L (12-78); SODIUM 138 mmol/L (136-145); TOTAL PROTEIN 5.4 gm/dL (6.4-8.2)
[2017-02-07 08:00] VITALS: BP 126/73
--- NOTE | 2017-02-07 09:29 | NUR ---
PHYSICAL THERAPY Mr Lane seen this AM for his therapy treatment. First therapy visit sleeping sound, Then up in his bedside chair having his breakfast transfer by nursing. Stopped back and Pt Son in with nursing giving treatment, will stop back later. ROSS WILBURN DONOR SPECIALIST.
--- NOTE | 2017-02-07 09:40 | NUR ---
Faxed clinicals to Ethel at [facility] for her to review, per her request.
--- NOTE | 2017-02-07 10:24 | NUR ---
PHYSICAL THERAPY Back this AM to treat Pt, Son present. glove and gown for Pt. Transfer sit/stand MOD A X 1, up on wheeled walker standing balance MOD A X 1, Pt has IV Pole, and cath. Followed by by gait total 85' X 1, MOD FISH SALTER X 1, verbal cueing for gait, walker safety and turns having no LOB this gait. Pt up in his bedside chair having no complaints and did well. Pt on and off his bedside commode. ROSS [facility] PEDIATRIC HOSPITALIST.
[2017-02-07 12:00] VITALS: BP 110/55
[2017-02-07] MEDS ORDERED: LACTINEX 0.2 MG1 TAB PO (13:43)
[2017-02-07] MEDS ORDERED: VANCOMYCIN250 MG/2.5 PO (13:43)
[2017-02-07] MEDS ORDERED: Vitamin D PO (13:46)
[2017-02-07] MEDS ORDERED: PACERONE200 MG PO (13:46)
[2017-02-07] MEDS ORDERED: METOPROLOL SUCC25 M2 PO (13:46)
[2017-02-07] MEDS ORDERED: ASPIRIN325 MG PO (13:50)
--- NOTE | 2017-02-07 15:04 | NUR ---
Patient being discharged back to [facility] via [place] [facility] at 4PM. NH, nursing and family notified.
--- NOTE | 2017-02-07 15:33 | NUR ---
PHYSICAL THERAPY CO-SIGN I approve of the Phyical Therapy notes written above. SHORTY BAIRD PT
--- NOTE | 2017-02-07 16:01 | NUR ---
PATIENT PICKED UP BY [facility] AT THIS TIME TO BE TAKEN BACK TO [facility]. HEPLOCKS REMOVED. & REGIONAL MANAGER DISCONTINUED. DISCHARGE PHOTOS WERE TAKEN. REPORT GIVEN TO JORGE.
== END 2017-02-07 16:01 | DRG 871 ==
LOC: ED 14:38 → ICCU 16:05 → 5E 16:05 → EDHOLD 16:05 → ICCU 16:07 → 5E 02-06 14:21
PROVIDERS: Emergency Medicine; Internal Medicine; Internal Medicine Hospice and Palliative Medicine; Internal Medicine Nephrology; ADMIT Internal Medicine
DX: A41.9 Sepsis, unspecified organism (principal); N17.0 Acute kidney failure with tubular necrosis; A04.7 Enterocolitis due to Clostridium difficile; E46 Unspecified protein-calorie malnutrition; I48.92 Unspecified atrial flutter; I13.0 Hypertensive heart and chronic kidney disease with heart failure and stage 1 through stage 4 chronic kidney disease, or unspecified chronic kidney disease; I48.0 Paroxysmal atrial fibrillation; I50.32 Chronic diastolic (congestive) heart failure; D64.9 Anemia, unspecified; B35.4 Tinea corporis; E83.51 Hypocalcemia; E03.9 Hypothyroidism, unspecified; I35.0 Nonrheumatic aortic (valve) stenosis; N40.0 Benign prostatic hyperplasia without lower urinary tract symptoms; R73.9 Hyperglycemia, unspecified; N18.3 Chronic kidney disease, stage 3 (moderate); H90.3 Sensorineural hearing loss, bilateral; Z96.659 Presence of unspecified artificial knee joint; H18.413 Arcus senilis, bilateral; Z96.1 Presence of intraocular lens; I25.10 Atherosclerotic heart disease of native coronary artery without angina pectoris; Z95.1 Presence of aortocoronary bypass graft; Z90.49 Acquired absence of other specified parts of digestive tract; Z95.2 Presence of prosthetic heart valve; Z85.3 Personal history of malignant neoplasm of breast; Z88.8 Allergy status to other drugs, medicaments and biological substances; Z79.82 Long term (current) use of aspirin; Z79.899 Other long term (current) drug therapy; Z98.49 Cataract extraction status, unspecified eye; Z90.10 Acquired absence of unspecified breast and nipple; Z68.23 Body mass index [BMI] 23.0-23.9, adult